=== PATIENT | female | born 1995 | race Caucasian/White ===

== ENCOUNTER 2017-01-22 11:07 | Emergency (ER) | payer BC ==
--- NOTE | 2017-01-22 13:50 | UC ---
Throat Pain/Nasal Cecil HPI - HPI Summary HPI Summary: TWO DAYS OF SORE THROAT, BILATERAL EAR PATIENT - History of Current Complaint Chief Complaint: UCRespiratory Stated Complaint: SORE THROAT EAR PAIN Time Seen by Provider: 01/22/17 12:36 Hx Obtained From: Patient Hx Last Menstrual Period: 12/23/16 Onset/Duration: Sudden Onset, Lasting Days, Still Present Severity: Moderate Associated Signs & Symptoms: Positive: Dysphagia, Hoarseness - Epiglottits Risk Factors Epiglottis Risk Factors: Negative - Allergies/Home Medications Allergies/Adverse Reactions: Allergies Allergy/AdvReac Type Severity Reaction Status Date / Time No Known Allergies Allergy Verified 01/22/17 12:39 Home Medications: Home Medications Fluticasone Propionate (Nasal) [Flonase Allergy Relief] 1 spray ALT NARE PRN [History] Ibuprofen [Advil] 600 mg PO PRN 01/22/17 [History] PMH/Surg Hx/FS Hx/Imm Hx Previously Healthy: Yes - Family History Known Family History: Negative: Respiratory Disease - Social History Occupation: Employed Part-time Lives: With Family Alcohol Use: Occasionally Substance Use Type: None Smoking Status (MU): Never Smoked Tobacco Review of Systems Constitutional: Fever, Chills Skin: Negative Eyes: Negative ENT: Sore Throat Respiratory: Negative Cardiovascular: Negative Gastrointestinal: Negative Genitourinary: Negative Motor: Negative Neurovascular: Negative Musculoskeletal: Negative Neurological: Negative Psychological: Negative All Other Systems Reviewed And Are Negative: Yes Physical Exam Triage Information Reviewed: Yes Appearance: No Pain Distress, Well-Nourished, Ill-Appearing Vital Signs: Initial Vital Signs Temp 97.4 F 01/22/17 12:36 Pulse 85 01/22/17 12:36 Resp 16 01/22/17 12:36 BP 116/83 01/22/17 12:36 Pulse Ox 100 01/22/17 12:36 Vital Signs Reviewed: Yes Eye Exam: Normal ENT: Positive: Hearing grossly normal, Pharynx normal, Pharyngeal erythema, TMs normal Dental Exam: Normal Neck exam: Normal Neck: Positive: Supple, Nontender, No Lymphadenopathy Respiratory Exam: Normal Respiratory: Positive: Chest non-tender, Lungs clear, Normal breath sounds, No respiratory distress, No accessory muscle use Cardiovascular Exam: Normal Cardiovascular: Positive: RRR, No Murmur, Pulses Normal Abdominal Exam: Normal Abdomen Description: Positive: Nontender, No Organomegaly Musculoskeletal Exam: Normal Neurological Exam: Normal Psychological Exam: Normal Psychological: Positive: Normal Response To Family Skin Exam: Normal Throat Pain/Nasal Course/Dx - Differential Dx/Diagnosis Differential Diagnosis/HQI/PQRI: Sinusitis, URI Provider Diagnoses: TONSILLITIS Discharge - Discharge Plan Condition: Stable Disposition: HOME Patient Education Materials: Tonsillitis (ED), Viral Syndrome (ED) Referrals: [facility] [place] [facility] [Outside] Non Staff,Doctor [Primary Care Provider] -
== END 2017-01-22 14:06 | disposition home or self-care (01) ==
LOC: UCEAST 11:07
DX: J03.90 Acute tonsillitis, unspecified (principal)
CPT/HCPCS: 87651; 99201; G0463

== ENCOUNTER 2017-02-27 20:35 | Emergency (ER) | payer BC ==
[2017-02-27] MEDS ORDERED: NS 0.9% 1000 ML* 1,000 ML IV ONE (21:00)
[2017-02-27] MEDS ORDERED: Ondansetron INJ* 2 MG/ML VIAL IV ONE (21:48)
[2017-02-27] MEDS ORDERED: Ondansetron INJ* 2 MG/ML VIAL ONE (21:49)
[2017-02-27 21:55] LABS: Hematocrit 38 % (35-47); Hemoglobin 12.6 g/dl (12.0-16.0); Mean Corpuscular HGB Conc 34 g/dl (31-36); Mean Corpuscular Hemoglobin 30 pg (27-31); Mean Corpuscular Volume 89 fL (80-97); Mean Platelet Volume 9 um3 (7.4-10.4); Red Blood Count 4.23 10^6/ul (4.0-5.4); Red Cell Distribution Width 13 % (10.5-15); White Blood Count 13.2 10^3/ul (3.5-10.8)
[2017-02-27 22:06] LABS: Urine Bilirubin Negative (Negative); Urine Glucose Negative (Negative); Urine Nitrite Negative (Negative)
[2017-02-27 22:12] LABS: ALT 15 U/L (7-52); AST 19 U/L (13-39); Albumin 4.1 g/dL (3.2-5.2); Alkaline Phosphatase 56 U/L (34-104); Anion Gap 10 mmol/L (2-11); BUN/Creatinine Ratio 22.9 (8-20); Blood Urea Nitrogen 19 mg/dL (6-24); CO2 Carbon Dioxide 25 mmol/L (22-32); Calcium 9.5 mg/dL (8.6-10.3); Chloride 96 mmol/L (101-111); EGFR African American 111.6 (>60); EGFR Non-African American 86.8 (>60); Globulin 3.4 g/dL (2-4); Glucose 128 mg/dL (70-100); Lipase 17 U/L (11.0-82.0); Potassium 3.5 mmol/L (3.5-5.0); Sodium 131 mmol/L (133-145); Total Protein 7.5 g/dL (6.4-8.9)
[2017-02-27] MEDS ORDERED: Iohexol 300* (CONTRAST) 10 ML SDV IV ONE (22:30)
[2017-02-28 01:37] VITALS: BP 117/73
--- NOTE | 2017-02-28 01:46 | ED ---
Denise Wong Alok, scribed for Sandro Freedman on 02/27/17 at 2145 . Complex/Multi-Sys Presentation - HPI Summary HPI Summary: 21 y/o female presents to the ED with RLQ and LLQ abd pain as well as probable LOC earlier today. Pt states her abd pain feels "like a gas bubble" which waxes and wanes in intensity at worst a 7 out of 10 in severity and currently at a 5. Pt states that today on the way to the bathroom she reportedly felt hot and diaphoretic with SOB and increased HR before waking up on the ground. Pt states she does not remember falling and most likely lost consciousness for approximately 10 seconds. Upon waking up, pt states she felt confusion for 10 seconds before returning to baseline. Her LOC episode was unwitnessed. Pt also notes nausea and denies CP and SOB presently. - History Of Current Complaint Chief Complaint: EDSyncope Time Seen by Provider: 02/27/17 20:51 Hx Obtained From: Patient Onset/Duration: Sudden Onset - LOC, Lasting Minutes - LOC lasting seconds, Still Present - Abd pain, Resolved - LOC Timing: Constant - Abd pain Severity Currently: Moderate - abd pain Severity Initially: Moderate - abd pain Location: Pain At: - RLQ and LLQ Associated Signs And Symptoms: Positive: Syncope - LOC 10 seconds, SOB - pre-LOC , Abdominal Pain, Other - Increased HR, diaphoresis, hot flash pre LOC - Allergies/Home Medications Allergies/Adverse Reactions: Allergies Allergy/AdvReac Type Severity Reaction Status Date / Time No Known Allergies Allergy Verified 01/22/17 12:39 PMH/Surg Hx/FS Hx/Imm Hx - Surgical History Surgery Procedure, Year, and Place: Tonsillectomy Infectious Disease History: No Infectious Disease History: Denies: Traveled Outside the [place] in Last 30 Days - Family History Known Family History: Negative: Respiratory Disease - Social History Occupation: Student Alcohol Use: Occasionally Substance Use Type: Reports: None Smoking Status (MU): Never Smoked Tobacco Review of Systems Positive: Skin Diaphoresis - pre LOC, Other - Hot flash pre LOC. Negative: Fever Positive: Other - Increased HR pre LOC Positive: Shortness Of Breath - pre LOC Positive: Abdominal Pain Positive: Syncope All Other Systems Reviewed And Are Negative: Yes Physical Exam Triage Information Reviewed: Yes Vital Signs On Initial Exam: Initial Vitals Temp Pulse Resp BP Pulse Ox 98.7 F 81 16 128/77 100 02/27/17 20:58 02/27/17 20:58 02/27/17 20:58 02/27/17 20:58 02/27/17 20:58 Vital Signs Reviewed: Yes Appearance: Positive: Well-Appearing, No Pain Distress Skin: Positive: Warm, Skin Color Reflects Adequate Perfusion, Dry Head/Face: Positive: Normal Head/Face Inspection Eyes: Positive: EOMI, GIANNI ENT: Positive: Normal ENT inspection Neck: Positive: Supple, Nontender Respiratory/Lung Sounds: Positive: Clear to Auscultation, Breath Sounds Present Cardiovascular: Positive: RRR, Pulses are Symmetrical in both Upper and Lower Extremities Abdomen Description: Positive: Soft, Other: - Right lower quadrant and left lower quadrant tenderness Bowel Sounds: Positive: Present Musculoskeletal: Positive: Normal, Strength/ROM Intact Neurological: Positive: Normal, Sensory/Motor Intact, Alert, Oriented to Person Place, Time - Jeremie Coma Scale Coma Scale Total: 15 Diagnostics - Vital Signs Vital Signs Temp Pulse Resp BP Pulse Ox 02/27/17 20:58 98.7 F 81 16 128/77 100 - Laboratory Result Diagrams: 02/27/17 21:46 02/27/17 21:46 Lab Statement: Any lab studies that have been ordered have been reviewed, and results considered in the medical decision making process. - CT Abd/Pel CT CT Interpretation: Positive (See Comments) - No bowel obstruction, colitis, free fluid or free air normal appendix. unremarkable pancreas, kidneys, and gallbladder. dilated urinary bladder. unremarkable uterus and ovaries. CT Interpretation Completed By: Radiologist Complex Multi-Symp Course/Dx Course Of Treatment: Pt came with abd pain. Lab and CT negative. No acute abdomen. Will discharge with instructions to FU with PCP in the next 3 days. - Diagnoses Provider Diagnoses: Pain, abdominal, nonspecific Discharge - Discharge Plan Condition: Stable Disposition: HOME Patient Education Materials: Abdominal Pain (ED) Referrals: Non Staff,Doctor [Primary Care Provider] - [facility] [place] [facility] [Outside] Additional Instructions: Please follow up with your primary care provider in the next 3 days The documentation as recorded by the Denies pate Alok accurately reflects the service I personally performed and the decisions made by Tano graham Emmanuel.
--- NOTE | 2017-02-28 07:52 | RAD ---
CLINICAL HISTORY: Abdominal pain COMPARISON: None TECHNIQUE: Multiple contiguous axial CT scans were obtained of the abdomen and pelvis after the administration of intravenous contrast. Coronal and sagittal multiplanar reformations are submitted for review. Oral contrast was administered. Delayed images were obtained through the abdomen and pelvis. FINDINGS: LUNG BASES: The lung bases are clear. LIVER: The liver is normal in shape, size, contour, and attenuation. BILE DUCTS: There is no intrahepatic or extrahepatic biliary dilatation. GALLBLADDER: The gallbladder is normal, without pericholecystic inflammatory change. PANCREAS: The pancreas is normal, without mass or ductal dilatation. SPLEEN: Normal in size and appearance. UPPER GI TRACT: Evaluation of the gastrointestinal tract is limited by incomplete gastric distention. The upper GI tract is unremarkable. SMALL BOWEL AND MESENTERY: The small bowel is normal in contour, course, and caliber. There is no obstruction or dilatation. COLON: The colon is normal in contour, course, caliber. There is no pericolonic inflammatory change. There is a tubular, vermiform, hollow viscus that is blind ending, and originates from the cecum, consistent with a normal appendix. There is no periappendiceal inflammatory change. ADRENALS: Normal bilaterally. KIDNEYS: The kidneys are normal in shape, size, contour, and axis. There is no hydronephrosis or nephrolithiasis. BLADDER: The bladder is smooth in contour. PELVIC ORGANS: The uterus and adnexa are grossly normal for technique. AORTA: The aorta is normal. IVC: Unremarkable LYMPH NODES: There is no lymphadenopathy by size criteria. ABDOMINAL WALL: There is no evidence for abdominal wall hernia. BONES AND SOFT TISSUES: The bones and soft tissues are unremarkable. OTHER: None IMPRESSION: NORMAL APPENDIX. NO ACUTE CT PATHOLOGY OF THE VISUALIZED ABDOMEN OR PELVIS
== END 2017-02-28 01:37 | disposition home or self-care (01) ==
LOC: ED 20:35
DX: R10.84 Generalized abdominal pain (principal); R55 Syncope and collapse; R06.02 Shortness of breath
CPT/HCPCS: 36415; 74177; 80053; 81003; 83690; 84484; 84702; 85025; 85610; 85730; 96374; 96375; 99283; J2405; Q9967